=== PATIENT | female | born 1965 ===

== ENCOUNTER 2021-02-05 10:48 | Day surgery (SDC) | payer OTHER ==
[~2021-02-05 10:48] MED LIST: CLEOCIN HCL300 MG
== END 2021-02-05 18:30 | disposition home or self-care (01) ==
LOC: CIR.AMB 10:48
PROVIDERS: ATTEND Obstetrics & Gynecology
DX: N84.0 Polyp of corpus uteri (principal); Z20.822 Contact with and (suspected) exposure to COVID-19